=== PATIENT | female | born 1970 | race Caucasian/White ===

== ENCOUNTER 2017-12-19 10:59 | Inpatient (IN) | payer MEDICAID, OTHER ==
[~2017-12-19] VITALS: Ht 162.6 cm; Wt 123.3 kg
[~2017-12-19 10:59] MED LIST: ALBU8HFA IH; ASPI81TA39 PO; BUME2TAB18 PO; CARV12 PO; LISI40TA4 PO; METF500T6 PO; NITR0.4T SL; POTA8TAB7 PO
[2017-12-19 11:18] LABS: GLUCOSE,POINT OF CARE 106 MG/DL (70-110)
[2017-12-19] MEDS ORDERED: BECL10.6 IH (11:18)
[2017-12-19] MEDS ORDERED: FURO80 PO (11:18)
[2017-12-19] MEDS ORDERED: DSS100 PO (11:18)
[2017-12-19] MEDS ORDERED: APIX5TAB PO (11:18)
[2017-12-19] MEDS ORDERED: ISOS30TA6 PO (11:18)
[2017-12-19] MEDS ORDERED: ALBU8HFA PO (11:18)
[2017-12-19] MEDS ORDERED: HYDR-4069 PO (11:18)
[2017-12-19] MEDS ORDERED: ATOR20TA86 PO (11:18)
[2017-12-19] MEDS ORDERED: ACET-784 PO (11:18)
[2017-12-19] MEDS ORDERED: LORA0.5T2 PO (11:18)
[2017-12-19] MEDS ORDERED: SPIR25 PO (11:18)
[2017-12-19] MEDS ORDERED: MELA3TAB66 PO (11:18)
[2017-12-19] MEDS ORDERED: CeFAZolin 1 GM/DEXTROSE 50 ML IV ONE (12:00)
[2017-12-19] MEDS ORDERED: APIXABAN 5 MG TABLET PO ONE (12:00)
[2017-12-19 12:25] LABS: BASOPHILS % (AUTO) 0.8 % (0.0-2.0); EOSINOPHILS % (AUTO) 0.8 % (1.0-6.0); HEMATOCRIT 45.2 % (36-46); HEMOGLOBIN 15.1 g/dL (12.0-16.0); LYMPHOCYTES # (AUTO) 1.2 K/uL (1.0-4.8); MEAN CORPUSCULAR HEMOGLOBIN 29.9 pg (26.0-34.0); MEAN CORPUSCULAR HGB CONC 33.4 G/dL (31.0-37.0); MEAN CORPUSCULAR VOLUME 90 fL (80-100); MONOCYTES # (AUTO) 0.6 K/uL (0.1-1.0); NEUTROPHILS # (AUTO) 3.9 K/uL (1.8-7.7); NEUTROPHILS % (AUTO) 67.4 % (40.0-70.0); PLATELET COUNT (AUTO) 194 K/uL (150-450); RED BLOOD CELL COUNT(AUTO) 5.04 MIL/uL (4.00-5.20); RED CELL DISTRIBUTION WIDTH 16.9 % (11.5-14.5)
[2017-12-19 12:37] LABS: INR 1.2 (0.9-1.1); PROTHROMBIN TIME 12.2 SEC (9.4-11.6)
[2017-12-19 12:41] LABS: ALANINE AMINOTRANSFERASE 29 U/L (12-78); ALBUMIN 2.9 g/dL (3.4-5.0); ALKALINE PHOSPHATASE 143 U/L (46-116); ANION GAP 5 mmol/L (8-16); ASPARTATE AMINOTRANSFERASE 31 U/L (15-37); BILIRUBIN,TOTAL 1.5 mg/dL (0.1-1.0); CALCIUM, TOTAL 9.2 mg/dL (8.8-10.5); CARBON DIOXIDE 38 mmol/L (22-29); CHLORIDE 98 mmol/L (98-107); CREATINE KINASE, TOTAL 67 U/L (26-192); CREATININE 0.84 mg/dL (0.60-1.30); GLOMERULAR FILTR. RATE CALC > 60 mL/min (>60); GLUCOSE,RANDOM 98 mg/dL (70-110); SODIUM SERUM 141 mmol/L (136-145); UREA NITROGEN, BLOOD 14 mg/dL (7-18)
[2017-12-19] MEDS ORDERED: POTASSIUM CHLORIDE 20 MEQ ER TABLET PO ONE (12:45)
[2017-12-19 12:47] LABS: AMPHET/METH SCREEN,URINE POSITIVE (NEGATIVE); BARBITURATE SCREEN, URINE NEGATIVE (NEGATIVE); BENZODIAZEPINES SCREEN,URINE NEGATIVE (NEGATIVE); CANNABINOID SCREEN,URINE POSITIVE (NEGATIVE); COCAINE SCREEN,URINE NEGATIVE (NEGATIVE); METHADONE SCREEN, URINE NEGATIVE (NEGATIVE); OPIATE SCREEN,URINE POSITIVE (NEGATIVE)
[2017-12-19 12:48] LABS: LACTIC ACID 1.7 mmol/L (0.4-2.0); PHENCYCLIDINE SCREEN,URINE NEGATIVE (NEGATIVE)
[2017-12-19 12:52] LABS: APPEARANCE,URINE CLOUDY (CLEAR); B-TYPE NATRIURETIC PEPTIDE 364 pg/mL (0-100); GLUCOSE, URINE (UA) NEGATIVE (NEGATIVE); KETONES,URINE NEGATIVE (NEGATIVE); LEUKOCYTE ESTERASE ,URINE SMALL (NEGATIVE); NITRATE,URINE NEGATIVE (NEGATIVE); OCCULT BLOOD,URINE NEGATIVE (NEGATIVE); PH,URINE 6.5 (5.0-8.0); PROTEIN,URINE SEE CONFIRM (NEGATIVE)
[2017-12-19 12:53] LABS: BILIRUBIN,URINE PRELIM. POSITIVE (NEGATIVE)
[2017-12-19 13:00] LABS: SULFOSALICYLIC ACID,URINE 3+ (Negative)
[2017-12-19 13:01] LABS: BACTERIA,URINE Rare /HPF (None Seen); RBC,URINE 0-2 /HPF (0-2)
[2017-12-19 13:02] LABS: CALCIUM OXALATE CRYSTALS,UR Moderate /LPF (None Seen); SQUAMOUS EPITHELIAL CELL,UR Many /LPF (None Seen)
[2017-12-19] MEDS ORDERED: ALBUTEROL SULFATE 2.5 MG/0.5 ML NEB SOLUTION NEB PRN (13:30)
[2017-12-19] MEDS ORDERED: OxyCODONE HCL/ACETAMINOPHEN 5-325 MG TABLET PO PRN (13:30)
[2017-12-19] MEDS ORDERED: MAGNESIUM HYDROXIDE SUSPENSION 30 ML UDCUP PO PRN (13:30)
[2017-12-19] MEDS ORDERED: ACETAMINOPHEN 325 MG TABLET PO PRN (13:30)
[2017-12-19] MEDS ORDERED: POTASSIUM CHL 10 MEQ/WATER 50 ML IV PRN (13:45)
[2017-12-19] MEDS ORDERED: DEXTROSE 50%-WATER 25 GM/50 ML SYRINGE IVP PRN (13:45)
[2017-12-19 15:17] VITALS: BP 102/65
[2017-12-19] MEDS ORDERED: PNEUMOCOCCAL VACCINE POLYVALENT 0.5 ML VIAL [PPSV23] IM ONE (17:15)
[2017-12-19] MEDS ORDERED: SODIUM CHLORIDE 0.9% 1,000 ML IV ONE (17:41)
[2017-12-19 19:14] VITALS: BP 112/77
[2017-12-19] MEDS: CARVEDILOL 6.25 MG TABLET PO SCH (20:46)
[2017-12-19] MEDS: CeFAZolin SODIUM 1 GM in DEXTROSE 5%-WATER 10 ML IV SCH (20:46)
[2017-12-19] MEDS: POTASSIUM CHLORIDE 20 MEQ ER TABLET PO PRN (20:47)
[2017-12-19] MEDS: ATORVASTATIN CALCIUM 20 MG TABLET PO SCH (20:47)
[2017-12-19] MEDS: BUMETANIDE 1 MG TABLET PO SCH (21:00)
[2017-12-19] MEDS: DOCUSATE SODIUM 100 MG CAPSULE PO SCH (21:00)
[2017-12-19] MEDS: APIXABAN 5 MG TABLET PO SCH (21:06)
[2017-12-19 23:56] VITALS: BP 109/70
[2017-12-20 04:17] LABS: GLUCOMETER DEV NAME(LOC) 5N 1P; GLUCOSE,POINT OF CARE 105 MG/DL (70-110)
[2017-12-20 04:36] VITALS: BP 102/63
[2017-12-20] MEDS: CeFAZolin SODIUM 1 GM in DEXTROSE 5%-WATER 10 ML IV SCH ×3 (04:38→20:25)
[2017-12-20] MEDS: POTASSIUM CHLORIDE 20 MEQ ER TABLET PO PRN (04:38)
[2017-12-20 07:17] VITALS: BP 106/78
[2017-12-20] MEDS: PANTOPRAZOLE SODIUM 40 MG DR TABLET PO SCH (08:44)
[2017-12-20] MEDS: CARVEDILOL 6.25 MG TABLET PO SCH ×2 (08:44→20:27)
[2017-12-20] MEDS: DOCUSATE SODIUM 100 MG CAPSULE PO SCH ×3 (08:45→20:44)
[2017-12-20] MEDS: BUMETANIDE 1 MG TABLET PO SCH (08:45)
[2017-12-20] MEDS: APIXABAN 5 MG TABLET PO SCH ×2 (08:45→20:25)
[2017-12-20 09:20] LABS: MAGNESIUM 1.5 mg/dL (1.80-2.40); POTASSIUM 3.6 mmol/L (3.5-5.1)
[2017-12-20] MEDS ORDERED: MAGNESIUM SULFATE 2 GM in DEXTROSE 5%-WATER 50 ML IV PRN (09:45)
[2017-12-20] MEDS ORDERED: POTASSIUM CHLORIDE 20 MEQ ER TABLET PO ONE (09:45)
[2017-12-20] MEDS ORDERED: MAGNESIUM SULFATE 4 GM/WATER 100 ML IV PRN (09:45)
[2017-12-20] MEDS ORDERED: MAGNESIUM OXIDE 400 MG TABLET PO PRN (09:45)
[2017-12-20] MEDS: LISINOPRIL 5 MG TABLET PO SCH (10:00)
[2017-12-20] MEDS: FUROSEMIDE 40 MG/4 ML VIAL IVP SCH ×2 (10:00→20:26)
[2017-12-20 10:15] LABS: ALBUMIN 3.1 g/dL (3.4-5.0)
[2017-12-20 11:07] VITALS: BP 102/66
[2017-12-20 11:58] LABS: GLUCOMETER DEV NAME(LOC) 5N 2S; GLUCOSE,POINT OF CARE 95 MG/DL (70-110)
[2017-12-20] MEDS ORDERED: CeFAZolin 1 GM/DEXTROSE 50 ML IV SCH (12:00)
[2017-12-20 16:06] VITALS: BP 133/88
[2017-12-20 19:47] VITALS: BP 122/60
[2017-12-20] MEDS: ATORVASTATIN CALCIUM 20 MG TABLET PO SCH (20:27)
[2017-12-20] MEDS: INSULIN LISPRO 100 UNITS/ML SQ PRN (20:41)
[2017-12-20] MEDS ORDERED: FUROSEMIDE 40 MG/4 ML VIAL IVP SCH (21:00)
[2017-12-20 23:15] VITALS: BP 107/83
[2017-12-21 04:30] VITALS: BP 114/67
[2017-12-21] MEDS: CeFAZolin SODIUM 1 GM in DEXTROSE 5%-WATER 10 ML IV SCH ×3 (04:31→20:27)
[2017-12-21 06:25] LABS: ANION GAP 3 mmol/L (8-16); CALCIUM, TOTAL 9.3 mg/dL (8.8-10.5); CARBON DIOXIDE 37 mmol/L (22-29); CHLORIDE 99 mmol/L (98-107); CREATININE 0.93 mg/dL (0.60-1.30); GLOMERULAR FILTR. RATE CALC > 60 mL/min (>60); GLUCOSE,RANDOM 108 mg/dL (70-110); POTASSIUM 3.7 mmol/L (3.5-5.1); SODIUM SERUM 139 mmol/L (136-145); UREA NITROGEN, BLOOD 12 mg/dL (7-18)
[2017-12-21 06:29] LABS: BASOPHILS % (AUTO) 0.5 % (0.0-2.0); EOSINOPHILS % (AUTO) 0.3 % (1.0-6.0); HEMATOCRIT 43.4 % (36-46); HEMOGLOBIN 14.4 g/dL (12.0-16.0); LYMPHOCYTES # (AUTO) 1.3 K/uL (1.0-4.8); LYMPHOCYTES % (AUTO) 22.2 % (22.0-44.0); MEAN CORPUSCULAR HEMOGLOBIN 29.8 pg (26.0-34.0); MEAN CORPUSCULAR HGB CONC 33.3 G/dL (31.0-37.0); MEAN CORPUSCULAR VOLUME 89 fL (80-100); MONOCYTES # (AUTO) 0.7 K/uL (0.1-1.0); MONOCYTES % (AUTO) 12.8 % (2.0-9.0); NEUTROPHILS # (AUTO) 3.7 K/uL (1.8-7.7); NEUTROPHILS % (AUTO) 64.2 % (40.0-70.0); RED BLOOD CELL COUNT(AUTO) 4.85 MIL/uL (4.00-5.20); RED CELL DISTRIBUTION WIDTH 16.1 % (11.5-14.5)
[2017-12-21 07:45] VITALS: BP 101/65
[2017-12-21] MEDS: DOCUSATE SODIUM 100 MG CAPSULE PO SCH ×2 (08:55→20:28)
[2017-12-21] MEDS: LISINOPRIL 5 MG TABLET PO SCH (08:55)
[2017-12-21] MEDS: POTASSIUM CHLORIDE 20 MEQ ER TABLET PO PRN (08:55)
[2017-12-21] MEDS: CARVEDILOL 6.25 MG TABLET PO SCH ×2 (08:55→20:28)
[2017-12-21] MEDS: APIXABAN 5 MG TABLET PO SCH ×2 (08:55→20:28)
[2017-12-21] MEDS: PANTOPRAZOLE SODIUM 40 MG DR TABLET PO SCH (08:55)
[2017-12-21] MEDS: FUROSEMIDE 40 MG/4 ML VIAL IVP SCH ×2 (08:56→20:27)
[2017-12-21 09:41] LABS: PLATELET COUNT (AUTO) 208 K/uL (150-450)
[2017-12-21 11:59] VITALS: BP 133/64
[2017-12-21 15:17] VITALS: BP 111/72
[2017-12-21 17:18] LABS: GLUCOMETER DEV NAME(LOC) 5N 1P; GLUCOSE,POINT OF CARE 102 MG/DL (70-110)
[2017-12-21 17:18] LABS: GLUCOMETER DEV NAME(LOC) 5N 1P; GLUCOSE,POINT OF CARE 115 MG/DL (70-110)
[2017-12-21 17:18] LABS: GLUCOMETER DEV NAME(LOC) 5N 1P; GLUCOSE,POINT OF CARE 122 MG/DL (70-110)
[2017-12-21 17:18] LABS: GLUCOMETER DEV NAME(LOC) 5N 1P; GLUCOSE,POINT OF CARE 127 MG/DL (70-110)
[2017-12-21 17:18] LABS: GLUCOMETER DEV NAME(LOC) 5N 1P; GLUCOSE,POINT OF CARE 158 MG/DL (70-110)
[2017-12-21 17:22] LABS: GLUCOMETER DEV NAME(LOC) 5N 1P; GLUCOSE,POINT OF CARE 101 MG/DL (70-110)
[2017-12-21 19:56] VITALS: BP 117/74
[2017-12-21 20:28] LABS: GLUCOMETER DEV NAME(LOC) 5N 2S; GLUCOSE,POINT OF CARE 111 MG/DL (70-110)
[2017-12-21] MEDS: ATORVASTATIN CALCIUM 20 MG TABLET PO SCH (20:28)
[2017-12-21] MEDS: INSULIN LISPRO 100 UNITS/ML SQ PRN (20:28)
[2017-12-21 23:32] LABS: GLUCOMETER DEV NAME(LOC) 5N 1P; GLUCOSE,POINT OF CARE 141 MG/DL (70-110)
[2017-12-22 00:10] VITALS: BP 118/88
[2017-12-22 05:07] VITALS: BP 126/78
[2017-12-22] MEDS: CeFAZolin SODIUM 1 GM in DEXTROSE 5%-WATER 10 ML IV SCH ×2 (05:09→11:40)
[2017-12-22 07:06] VITALS: BP 128/96
[2017-12-22] MEDS: CARVEDILOL 6.25 MG TABLET PO SCH (07:48)
[2017-12-22] MEDS: FUROSEMIDE 40 MG/4 ML VIAL IVP SCH (07:48)
[2017-12-22] MEDS: APIXABAN 5 MG TABLET PO SCH (07:48)
[2017-12-22] MEDS: PANTOPRAZOLE SODIUM 40 MG DR TABLET PO SCH (07:49)
[2017-12-22] MEDS: LISINOPRIL 5 MG TABLET PO SCH (07:49)
[2017-12-22] MEDS: DOCUSATE SODIUM 100 MG CAPSULE PO SCH (07:49)
[2017-12-22 11:04] VITALS: BP 112/81
[2017-12-23 00:18] LABS: GLUCOMETER DEV NAME(LOC) 5N 2S; GLUCOSE,POINT OF CARE 114 MG/DL (70-110)
[2017-12-24 16:13] LABS: GLUCOMETER DEV NAME(LOC) 5N 1P; GLUCOSE,POINT OF CARE 122 MG/DL (70-110)
== END 2017-12-22 13:25 | disposition home or self-care (01) | DRG 383 ==
LOC: EMS 11:00 → 5N 14:01 → 5S 16:47
PROVIDERS: ADMIT Internal Medicine; ATTEND Internal Medicine
DX: L03.115 Cellulitis of right lower limb (principal); I42.9 Cardiomyopathy, unspecified; E44.0 Moderate protein-calorie malnutrition; Z68.42 Body mass index [BMI] 45.0-49.9, adult; I11.0 Hypertensive heart disease with heart failure; I50.9 Heart failure, unspecified; E66.01 Morbid (severe) obesity due to excess calories; L03.116 Cellulitis of left lower limb; Z79.01 Long term (current) use of anticoagulants; E11.9 Type 2 diabetes mellitus without complications; E87.6 Hypokalemia; G47.33 Obstructive sleep apnea (adult) (pediatric); J44.9 Chronic obstructive pulmonary disease, unspecified; F19.10 Other psychoactive substance abuse, uncomplicated; F17.210 Nicotine dependence, cigarettes, uncomplicated; F15.90 Other stimulant use, unspecified, uncomplicated; F12.90 Cannabis use, unspecified, uncomplicated; Z91.19 Patient's noncompliance with other medical treatment and regimen; Z95.810 Presence of automatic (implantable) cardiac defibrillator; Z90.49 Acquired absence of other specified parts of digestive tract; Z88.2 Allergy status to sulfonamides; Z79.4 Long term (current) use of insulin; Z79.82 Long term (current) use of aspirin; Z79.899 Other long term (current) drug therapy; Z86.711 Personal history of pulmonary embolism; Z28.21 Immunization not carried out because of patient refusal; Z71.51 Drug abuse counseling and surveillance of drug abuser; Z71.6 Tobacco abuse counseling
CPT/HCPCS: 83605; 83735; 84132; 87086; 93005; 93970; 96374; 99285; G0480; J0690; J1940; J3475; J7030; J7060

== ENCOUNTER 2020-08-25 13:11 | Emergency (ER) | payer OTHER ==
[~2020-08-25] VITALS: Ht 162.6 cm; Wt 102.3 kg
[~2020-08-25 13:11] MED LIST changes: +ACET-784 PO; +ALBU8HFA PO; +APIX5TAB PO; +ATOR20TA86 PO; +BECL10.6 IH; -BUME2TAB18 PO; +DSS100 PO; +FURO80 PO; +ISOS30TA6 PO; +METF-960 PO; -METF500T6 PO
[2020-08-25] MEDS ORDERED: GABAPENTIN 100 MG CAPSULE PO ONE (14:00)
[2020-08-25 16:32] VITALS: BP 122/74
== END 2020-08-25 16:34 | disposition home or self-care (01) ==
LOC: EMS 13:22
DX: M54.12 Radiculopathy, cervical region (principal); M54.5 Low back pain; F17.210 Nicotine dependence, cigarettes, uncomplicated
CPT/HCPCS: 99406

== ENCOUNTER 2020-08-31 18:02 | Emergency (ER) | payer OTHER ==
[~2020-08-31] VITALS: Ht 162.6 cm; Wt 131.8 kg
[2020-08-31] MEDS ORDERED: METF-911 PO (19:22)
[2020-08-31] MEDS ORDERED: BACL10TA PO (19:22)
[2020-08-31] MEDS ORDERED: KETOROLAC TROMETHAMINE 30 MG/ML VIAL IM ONE (22:15)
[2020-08-31] MEDS ORDERED: LIDOCAINE 5% TRANSDERMAL PATCH TD ONE (22:45)
[2020-08-31] MEDS ORDERED: ACETAMINOPHEN 500 MG TABLET PO ONE (22:45)
[2020-08-31] MEDS ORDERED: CYCLOBENZAPRINE HCL 10 MG TABLET PO ONE (23:00)
[2020-09-01 02:14] VITALS: BP 136/78
== END 2020-09-01 02:15 | disposition home or self-care (01) ==
LOC: EMS 18:02
DX: S32.019A Unspecified fracture of first lumbar vertebra, initial encounter for closed fracture (principal); S32.029A Unspecified fracture of second lumbar vertebra, initial encounter for closed fracture; S63.501A Unspecified sprain of right wrist, initial encounter; S93.601A Unspecified sprain of right foot, initial encounter; S09.90XA Unspecified injury of head, initial encounter; M48.02 Spinal stenosis, cervical region; M51.46 Schmorl's nodes, lumbar region; M47.022 Vertebral artery compression syndromes, cervical region; I11.0 Hypertensive heart disease with heart failure; I50.9 Heart failure, unspecified; E11.9 Type 2 diabetes mellitus without complications; I25.2 Old myocardial infarction; F12.90 Cannabis use, unspecified, uncomplicated; F17.210 Nicotine dependence, cigarettes, uncomplicated; Z95.0 Presence of cardiac pacemaker; Z90.89 Acquired absence of other organs; Z88.1 Allergy status to other antibiotic agents; Z79.82 Long term (current) use of aspirin; Z79.899 Other long term (current) drug therapy; W01.0XXA Fall on same level from slipping, tripping and stumbling without subsequent striking against object, initial encounter; Y93.89 Activity, other specified; Y92.89 Other specified places as the place of occurrence of the external cause; Y99.8 Other external cause status
CPT/HCPCS: 70450; 72125; 72131

== ENCOUNTER → 2020-08-31 19:27 | Emergency (ER) | payer OTHER ==
[~2020-08-31 19:27] MED LIST changes: +BACL10TA PO; +METF-911 PO
== END | disposition home or self-care (01) ==
LOC: EMS 19:27
DX: Z04.3 Encounter for examination and observation following other accident (principal); Z53.21 Procedure and treatment not carried out due to patient leaving prior to being seen by health care provider

== ENCOUNTER 2020-10-08 15:47 | Emergency (ER) | payer MEDICAID, OTHER ==
[~2020-10-08] VITALS: Ht 162.6 cm; Wt 118.2 kg
[~2020-10-08 15:47] MED LIST changes: -ISOS30TA6 PO; +ISOS30TA92 PO; -LISI40TA4 PO; +LISI40TA9 PO
[2020-10-08 20:00] VITALS: BP 129/51
== END 2020-10-08 20:33 | disposition home or self-care (01) ==
LOC: EMS 15:49
DX: G43.909 Migraine, unspecified, not intractable, without status migrainosus (principal); I11.0 Hypertensive heart disease with heart failure; I50.9 Heart failure, unspecified; E11.9 Type 2 diabetes mellitus without complications; I25.2 Old myocardial infarction; F12.90 Cannabis use, unspecified, uncomplicated; Z95.0 Presence of cardiac pacemaker; Z90.89 Acquired absence of other organs; Z88.1 Allergy status to other antibiotic agents; Z79.899 Other long term (current) drug therapy; Z79.82 Long term (current) use of aspirin
CPT/HCPCS: 70450; 99284

== ENCOUNTER 2020-10-12 13:29 | Emergency (ER) | payer OTHER ==
[~2020-10-12] VITALS: Ht 162.6 cm; Wt 129.6 kg
[2020-10-12] MEDS ORDERED: LIDOCAINE 5% TRANSDERMAL PATCH TD ONE (14:00)
[2020-10-12] MEDS ORDERED: KETOROLAC TROMETHAMINE 30 MG/ML VIAL IM ONE (14:00)
[2020-10-12 16:00] VITALS: BP 121/65
== END 2020-10-12 16:12 | disposition home or self-care (01) ==
LOC: MERGE 13:31 → EMS 13:31
DX: M54.5 Low back pain (principal); G89.29 Other chronic pain; E11.9 Type 2 diabetes mellitus without complications; I10 Essential (primary) hypertension; F17.210 Nicotine dependence, cigarettes, uncomplicated; Z88.1 Allergy status to other antibiotic agents
CPT/HCPCS: 72100; 82962; 96372; 99283; J1885